=== PATIENT | male | born 1970 | race African-American/Black ===

== ENCOUNTER 2020-10-01 08:35 | Emergency (ER) | payer OTHER ==
[2020-10-01 08:55] VITALS: BMI 32.1
[2020-10-01 10:31] VITALS: BP 126/83; PULSE 78; TEMP 98
== END 2020-10-01 11:14 | disposition home or self-care (01) ==
LOC: JERFT 08:35
DX: S81.811A Laceration without foreign body, right lower leg, initial encounter (principal); W25.XXXA Contact with sharp glass, initial encounter
CPT/HCPCS: 99281-25